=== PATIENT | female | born 1955 | race Caucasian/White ===

== ENCOUNTER 2024-08-29 23:12 | Inpatient (IN) | payer MEDICARE ==
[2024-08-30] MEDS ORDERED: Acetaminophen 650 MG Suppository PR PRN (00:40)
[2024-08-30] MEDS ORDERED: Ondansetron ODT 4 MG TAB PO PRN (00:40)
[2024-08-30] MEDS ORDERED: Acetaminophen 325 MG TAB PO PRN (00:40)
[2024-08-30] MEDS ORDERED: Ondansetron PF 4 MG/2 ML Vial IVP PRN (00:40)
[2024-08-30] MEDS ORDERED: Dextrose 50% Abboject 50 ML SYRINGE SLOW IVP PRN (00:42)
[2024-08-30] MEDS ORDERED: Glucagon 1 MG/ML KIT IM PRN (00:42)
[2024-08-30] MEDS ORDERED: Dextrose 5% in Water 1,000 ML IV PRN (00:42)
[2024-08-30] MEDS ORDERED: Insulin Lispro 100 UNIT/ML 10 ML VIAL SC PRN (00:42)
[2024-08-30 02:13] VITALS: BMI 32.3
[2024-08-30 04:54] LABS: #Basophils 0.07 10x3/uL (0.0-0.2); %Basophils 0.9 % (0.0-1.0); %Lymphocytes 29.5 % (21.0-51.0); %Monocytes 9.4 % (0.0-10.0); %Neutrophils 55.9 % (42.0-75.0); Hematocrit 41.3 % (36.0-47.0); Hemoglobin 13.3 g/dL (12.0-16.0); Mean Corpuscular HGB CONC 32.2 g/dL (32.0-36.0); Mean Corpuscular Hemoglobin 28.4 pg (27.0-31.0); Mean Corpuscular Volume 88.1 fL (78.0-98.0); Mean Platelet Volume 9.2 fL (7.4-10.4); Platelet Count 265 10x3/uL (130-400); RBC Distribution Width 15.8 % (11.5-14.5); Red Blood Cell (RBC) Count 4.69 mill/uL (4.20-5.40)
[2024-08-30 05:28] LABS: Hemoglobin A1c 7.6 % (4.0-6.0)
[2024-08-30 05:38] LABS: Anion Gap 16 mmol/L (10-20); BUN (Urea Nitrogen) 15 mg/dL (9.8-20.1); Calc. Creatinine Clearance 89 mL/min (70-130); Carbon Dioxide 21 mmol/L (23-31); Cardiac Risk 4.5 (Less than 4.5); Chloride 110 mmol/L (98-107); Cholesterol 162 mg/dl (< 200 Desired); Estimated GFR 75; Glucose 226 mg/dL (80-115); HDL Cholesterol 36 mg/dL (>60 Neg Risk); LDL Cholesterol, Calculated 94 mg/dL; Potassium 3.6 mmol/L (3.5-5.1); Sodium 143 mmol/L (136-145); Triglycerides 158 mg/dL (Less than 150)
[2024-08-30] MEDS: Sodium Chloride 0.9% 1,000 ML IV SCH (06:09)
[2024-08-30] MEDS: Famotidine 20 MG TAB PO SCH (09:02)
[2024-08-30] MEDS: Aspirin 81 mg Enteric Coated Tablet PO SCH (09:02)
[2024-08-30] MEDS: Warfarin Sodium 5 MG TAB PO SCH ×2 (10:41→17:32)
[2024-08-30] MEDS: Insulin Lispro 100 UNIT/ML 10 ML VIAL SC PRN (13:16)
[2024-08-30] MEDS: Atorvastatin Calcium 40 MG TAB PO SCH (21:42)
[2024-08-31 04:14] LABS: INR-International Normal Ratio 2.8; Prothrombin Time 29.6 sec (12.0-14.7)
[2024-08-31] MEDS: Levothyroxine Sodium 75 MCG TAB PO SCH (06:32)
[2024-08-31] MEDS ORDERED: HumuLIN 70/30 100 Unit/ml 10 ml Vial SC SCH (16:30)
[2024-08-31 17:00] VITALS: BP 106/69; TEMP 97.1
[2024-08-31] MEDS ORDERED: Warfarin Sodium 2.5 MG TAB PO SCH (17:00)
[2024-09-01] MEDS ORDERED: HumuLIN 70/30 100 Unit/ml 10 ml Vial SC SCH (07:30)
[2024-09-02] MEDS ORDERED: FLU (Fluad Triv) TS24-25 (65UP)/MF59C/PF 45 MCG/0.5 ML Syringe IM ONE (09:00)
== END 2024-08-31 17:24 | disposition home or self-care (01) | DRG 93 ==
LOC: 2SE 23:12 → OBSVTOIN 08-31 13:54
PROVIDERS: ADMIT Internal Medicine; ATTEND Internal Medicine
DX: R26.81 Unsteadiness on feet (principal); Z66 Do not resuscitate; E78.5 Hyperlipidemia, unspecified; E89.0 Postprocedural hypothyroidism; E11.9 Type 2 diabetes mellitus without complications; Z86.711 Personal history of pulmonary embolism; Z79.01 Long term (current) use of anticoagulants; Z88.1 Allergy status to other antibiotic agents; Z88.0 Allergy status to penicillin; Z88.2 Allergy status to sulfonamides; Z88.8 Allergy status to other drugs, medicaments and biological substances; Z85.850 Personal history of malignant neoplasm of thyroid; Z90.49 Acquired absence of other specified parts of digestive tract; Z92.3 Personal history of irradiation; Z79.4 Long term (current) use of insulin; Z79.890 Hormone replacement therapy; Z79.899 Other long term (current) drug therapy
CPT/HCPCS: 36415; 36416; 70551; 80048; 80061; 83036; 84443; 85025; 85610; 93880; G0378; J1815; J7030